=== PATIENT | male | born 1955 | race Caucasian/White ===

== ENCOUNTER 2016-07-21 09:17 | Inpatient (IN) | payer MEDICAID ==
[~2016-07-21] VITALS: Ht 182.9 cm; Wt 83.2 kg
[2016-07-21] MEDS ORDERED: ACETAMINOPHEN 325 MG TABLET PO ONE (09:30)
[2016-07-21] MEDS ORDERED: PIPERACILLIN/TAZO 3.375 GM in SODIUM CHLORIDE 0.9% 50 ML IVPB ONE (09:30)
[2016-07-21] MEDS ORDERED: SODIUM CHLORIDE FLUSH 10ML SYR IVF ONE (09:30)
[2016-07-21] MEDS ORDERED: VANCOMYCIN PER PHARMACY MC ONE (09:30)
[2016-07-21] MEDS ORDERED: SODIUM CHLORIDE 0.9% 1,000ML IVBOLUS ONE ×3 (09:30→11:00)
[2016-07-21] MEDS ORDERED: ACETAMINOPHEN 325 MG TABLET ONE (09:55)
[2016-07-21] MEDS ORDERED: OXYC-229 PO (10:04)
[2016-07-21 10:13] LABS: ABG COLLECTION SITE RIGHT RADIAL; COLLATERAL CIRCULATION TESTING NORMAL
[2016-07-21 10:25] LABS: BLOOD UREA NITROGEN 5 mg/dL (7-18)
[2016-07-21 10:28] LABS: ASPARTATE AMINO TRANSFERASE 3 U/L (15-37)
[2016-07-21 10:30] LABS: DIFF TOTAL CELLS COUNTED 100 CELL DIFF
[2016-07-21] MEDS ORDERED: VANCOMYCIN 2,000 MG in SODIUM CHLORIDE 0.9% 500 ML IV ONE (10:30)
[2016-07-21] MEDS ORDERED: FENTANYL PF 100 MCG/2ML IV ONE (10:30)
[2016-07-21 10:32] LABS: ANISOCYTOSIS 1+; VERIFY COUNTS? YES
[2016-07-21 10:33] LABS: HYPOCHROMIA 1+
[2016-07-21 10:34] LABS: MICROCYTOSIS 1+; POLYCHROMASIA 1+
[2016-07-21] MEDS ORDERED: FENTANYL PF 100 MCG/2ML ONE (10:34)
[2016-07-21] MEDS: GABAPENTIN 300 MG CAPSULE PO SCH ×3 (10:44→21:00)
[2016-07-21] MEDS ORDERED: ALBUTEROL/IPRATROPIUM 2.5MG/0.5MG, 3 ML ONE (11:05)
[2016-07-21] MEDS: ALBUTEROL/IPRATROPIUM 2.5MG/0.5MG, 3 ML NPPB SCH ×5 (11:10→22:50)
[2016-07-21] MEDS ORDERED: NOREPINEPHRINE 4 MG in SODIUM CHLORIDE 0.9% 246 ML IV PRN ×2 (11:30→13:00)
[2016-07-21] MEDS ORDERED: LORazepam 2 MG/ML, 1ML ONE (11:39)
[2016-07-21] MEDS ORDERED: DIGO125T PO (11:53)
[2016-07-21] MEDS ORDERED: ALPR0.254 PO (11:53)
[2016-07-21] MEDS ORDERED: ASPI-650 PO (11:53)
[2016-07-21] MEDS ORDERED: FERR325T10 PO (11:54)
[2016-07-21] MEDS ORDERED: DILT240C80 PO (11:54)
[2016-07-21] MEDS ORDERED: GABA300C10 PO (11:55)
[2016-07-21] MEDS ORDERED: IPRA3AMP INH (11:56)
[2016-07-21] MEDS ORDERED: POLY17PO5 PO (11:57)
[2016-07-21] MEDS ORDERED: POTA20TA89 PO (11:59)
[2016-07-21] MEDS ORDERED: SENN-66 PO (11:59)
[2016-07-21] MEDS ORDERED: SERT50TA5 PO (11:59)
[2016-07-21] MEDS ORDERED: BUDE10.2 INH (11:59)
[2016-07-21] MEDS ORDERED: CLOT15CR5 TP (12:01)
[2016-07-21] MEDS ORDERED: TAMS0.4C2 PO (12:01)
[2016-07-21] MEDS ORDERED: TIOT18CA INH (12:02)
[2016-07-21] MEDS ORDERED: LORazepam 2 MG/ML, 1ML IVPush ONE (12:30)
[2016-07-21] MEDS ORDERED: LORazepam 2 MG/ML, 1ML IVPush PRN (13:00)
[2016-07-21] MEDS ORDERED: VANCOMYCIN PER PHARMACY MC PRN (13:00)
[2016-07-21] MEDS ORDERED: ACETAMINOPHEN 325 MG TABLET PO PRN (13:00)
[2016-07-21] MEDS ORDERED: POLYETHYLENE GLYCOL 17 GM PACKET PO PRN (13:00)
[2016-07-21] MEDS ORDERED: ONDANSETRON 2MG/ML, 2ML IVPush PRN (13:00)
[2016-07-21] MEDS: PIPERACILLIN/TAZO/PMX 4.5GM 100 ML IV SCH ×2 (13:00→18:40)
[2016-07-21 14:22] VITALS: BP 98/55
[2016-07-21] MEDS ORDERED: PHARMACOKINETIC CONSULTATION MC ONE (14:30)
[2016-07-21] MEDS: methylPREDNISolone SOD SUCC 40 MG/ML IVPush SCH ×2 (14:52→21:52)
[2016-07-21] MEDS: ENOXAPARIN 40 MG/0.4 ML SQ SCH (14:52)
[2016-07-21] MEDS: NS + 20MEQ KCL 1,000 ML IV SCH (15:02)
[2016-07-21] MEDS ORDERED: ALBUTEROL/IPRATROPIUM 2.5MG/0.5MG, 3 ML NPPB PRN (16:00)
[2016-07-21] MEDS ORDERED: ALBUTEROL/IPRATROPIUM 2.5MG/0.5MG, 3 ML NPPB SCH (18:00)
[2016-07-21] MEDS: OXYcodone IR 5MG TABLET PO PRN (19:46)
[2016-07-21] MEDS ORDERED: PHARMACOKINETIC MONITORING MC PRN (21:00)
[2016-07-21] MEDS: VANCOMYCIN 2,000 MG in SODIUM CHLORIDE 0.9% 500 ML IV SCH (21:52)
[2016-07-22] MEDS: PIPERACILLIN/TAZO/PMX 4.5GM 100 ML IV SCH ×4 (01:20→20:53)
[2016-07-22] MEDS: NS + 20MEQ KCL 1,000 ML IV SCH (01:21)
[2016-07-22] MEDS: ALBUTEROL/IPRATROPIUM 2.5MG/0.5MG, 3 ML NPPB SCH ×6 (02:09→22:35)
[2016-07-22] MEDS: methylPREDNISolone SOD SUCC 40 MG/ML IVPush SCH ×4 (03:00→20:52)
[2016-07-22] MEDS: OXYcodone IR 5MG TABLET PO PRN ×4 (03:21→21:36)
[2016-07-22 03:59] LABS: ASPARTATE AMINO TRANSFERASE 8 U/L (15-37); BLOOD UREA NITROGEN 7 mg/dL (7-18)
[2016-07-22 04:36] VITALS: BP 121/65
[2016-07-22 05:34] LABS: DIFF TOTAL CELLS COUNTED 100 CELL DIFF
[2016-07-22 05:35] LABS: ANISOCYTOSIS 1+; HYPOCHROMIA 1+; VERIFY COUNTS? YES
[2016-07-22] MEDS: SENNA/DOCUSATE TABLET PO SCH (09:00)
[2016-07-22] MEDS: GABAPENTIN 300 MG CAPSULE PO SCH ×3 (09:02→20:52)
[2016-07-22] MEDS: VANCOMYCIN 2,000 MG in SODIUM CHLORIDE 0.9% 500 ML IV SCH (12:20)
[2016-07-22] MEDS: ENOXAPARIN 40 MG/0.4 ML SQ SCH (13:27)
[2016-07-22 14:40] VITALS: BP 133/80
[2016-07-22 20:00] VITALS: BP 145/93
[2016-07-23] MEDS: VANCOMYCIN 2,000 MG in SODIUM CHLORIDE 0.9% 500 ML IV SCH ×2 (00:33→12:31)
[2016-07-23 02:51] VITALS: BP 138/86
[2016-07-23] MEDS: ALBUTEROL/IPRATROPIUM 2.5MG/0.5MG, 3 ML NPPB SCH ×6 (02:55→22:50)
[2016-07-23] MEDS: methylPREDNISolone SOD SUCC 40 MG/ML IVPush SCH ×4 (03:26→22:26)
[2016-07-23] MEDS: PIPERACILLIN/TAZO/PMX 4.5GM 100 ML IV SCH ×4 (03:27→22:26)
[2016-07-23 04:07] LABS: ASPARTATE AMINO TRANSFERASE 7 U/L (15-37); BLOOD UREA NITROGEN 8 mg/dL (7-18)
[2016-07-23 07:36] VITALS: BP 151/91
[2016-07-23] MEDS: SENNA/DOCUSATE TABLET PO SCH (09:00)
[2016-07-23] MEDS: GABAPENTIN 300 MG CAPSULE PO SCH ×3 (09:32→22:26)
[2016-07-23] MEDS: OXYcodone IR 5MG TABLET PO PRN ×4 (09:33→22:26)
[2016-07-23] MEDS: ENOXAPARIN 40 MG/0.4 ML SQ SCH (12:32)
[2016-07-23 15:04] VITALS: BP 141/87
[2016-07-23 20:00] VITALS: BP 147/81
[2016-07-24] MEDS: VANCOMYCIN 2,000 MG in SODIUM CHLORIDE 0.9% 500 ML IV SCH (00:43)
[2016-07-24 02:00] VITALS: BP 152/91
[2016-07-24] MEDS: OXYcodone IR 5MG TABLET PO PRN ×3 (03:02→21:04)
[2016-07-24] MEDS: methylPREDNISolone SOD SUCC 40 MG/ML IVPush SCH ×4 (03:20→21:03)
[2016-07-24] MEDS: PIPERACILLIN/TAZO/PMX 4.5GM 100 ML IV SCH ×4 (03:20→21:04)
[2016-07-24] MEDS: ALBUTEROL/IPRATROPIUM 2.5MG/0.5MG, 3 ML NPPB SCH ×5 (07:25→23:36)
[2016-07-24 08:36] VITALS: BP 153/90
[2016-07-24] MEDS: SENNA/DOCUSATE TABLET PO SCH (08:38)
[2016-07-24] MEDS: FLUTICASONE/VILANTEROL 200-25MCG/INH INH SCH (08:38)
[2016-07-24] MEDS: GABAPENTIN 300 MG CAPSULE PO SCH ×3 (08:39→21:00)
[2016-07-24] MEDS: ENOXAPARIN 40 MG/0.4 ML SQ SCH (12:20)
[2016-07-24] MEDS ORDERED: VANCOMYCIN 2,000 MG in SODIUM CHLORIDE 0.9% 500 ML IV SCH (12:30)
[2016-07-24 20:24] VITALS: BP 151/99
[2016-07-25 02:04] VITALS: BP_SYST 138; BP_SYST 160; BP_DIAS 89; BP_DIAS 96
[2016-07-25] MEDS: OXYcodone IR 5MG TABLET PO PRN ×5 (02:13→22:37)
[2016-07-25] MEDS: methylPREDNISolone SOD SUCC 40 MG/ML IVPush SCH ×2 (03:08→08:47)
[2016-07-25] MEDS: PIPERACILLIN/TAZO/PMX 4.5GM 100 ML IV SCH ×2 (03:08→08:48)
[2016-07-25 03:26] LABS: BLOOD UREA NITROGEN 11 mg/dL (7-18)
[2016-07-25] MEDS: VANCOMYCIN 2,000 MG in SODIUM CHLORIDE 0.9% 500 ML IV SCH (05:48)
[2016-07-25] MEDS: ALBUTEROL/IPRATROPIUM 2.5MG/0.5MG, 3 ML NPPB SCH ×5 (06:00→22:00)
[2016-07-25] MEDS ORDERED: SODIUM BICARBONATE 4.2%, 5ML NPPB SCH (07:00)
[2016-07-25] MEDS: FLUTICASONE/VILANTEROL 200-25MCG/INH INH SCH (08:47)
[2016-07-25] MEDS: GABAPENTIN 300 MG CAPSULE PO SCH ×3 (08:47→22:37)
[2016-07-25] MEDS: SENNA/DOCUSATE TABLET PO SCH (08:47)
[2016-07-25 09:47] VITALS: BP 148/94
[2016-07-25] MEDS: SODIUM BICARBONATE 4.2%, 5ML NPPB SCH ×4 (10:00→22:00)
[2016-07-25] MEDS: ENOXAPARIN 40 MG/0.4 ML SQ SCH (11:47)
[2016-07-25 13:58] VITALS: BP 157/94
[2016-07-25] MEDS: GUAIFENESIN 200 MG TABLET PO SCH ×2 (17:18→22:37)
[2016-07-25] MEDS: PIPERACILLIN/TAZO 4.5 GM in SODIUM CHLORIDE 0.9% 100 ML IVPB SCH ×2 (17:19→22:36)
[2016-07-25 19:58] VITALS: BP 147/98
[2016-07-26] MEDS: VANCOMYCIN 2,000 MG in SODIUM CHLORIDE 0.9% 500 ML IV SCH ×2 (00:15→18:18)
[2016-07-26 01:12] VITALS: BP 153/94
[2016-07-26] MEDS: PIPERACILLIN/TAZO 4.5 GM in SODIUM CHLORIDE 0.9% 100 ML IVPB SCH ×4 (04:54→22:53)
[2016-07-26] MEDS: GUAIFENESIN 200 MG TABLET PO SCH ×4 (05:04→20:34)
[2016-07-26] MEDS: OXYcodone IR 5MG TABLET PO PRN ×2 (05:04→20:34)
[2016-07-26] MEDS: SODIUM CHLORIDE NASAL SPRAY 45ML BOTTLE NAS PRN ×2 (05:05→20:49)
[2016-07-26 06:08] LABS: BLOOD UREA NITROGEN 8 mg/dL (7-18)
[2016-07-26 06:15] LABS: DIFF TOTAL CELLS COUNTED 100 CELL DIFF
[2016-07-26 06:17] LABS: VERIFY COUNTS? YES
[2016-07-26 06:18] LABS: ANISOCYTOSIS 1+
[2016-07-26 06:39] VITALS: BP 136/87
[2016-07-26] MEDS: ALBUTEROL/IPRATROPIUM 2.5MG/0.5MG, 3 ML NPPB SCH ×3 (07:10→14:35)
[2016-07-26] MEDS: SODIUM BICARBONATE 4.2%, 5ML NPPB SCH ×2 (07:10→10:50)
[2016-07-26] MEDS ORDERED: POTASSIUM CHLORIDE 20 MEQ TAB.ER.PRT PO ONE (07:30)
[2016-07-26] MEDS: GABAPENTIN 300 MG CAPSULE PO SCH ×3 (08:40→20:36)
[2016-07-26] MEDS: IRON SUCROSE COMPLEX 100MG/5ML IV SCH (08:41)
[2016-07-26] MEDS: SENNA/DOCUSATE TABLET PO SCH (08:41)
[2016-07-26] MEDS: FLUTICASONE/VILANTEROL 200-25MCG/INH INH SCH (08:41)
[2016-07-26 10:59] LABS: ABG COLLECTION SITE LEFT RADIAL; COLLATERAL CIRCULATION TESTING NORMAL
[2016-07-26] MEDS ORDERED: DILTIAZEM 5 MG/ML, 5ML IVPush ONE (11:30)
[2016-07-26] MEDS: DILTIAZEM 30 MG TABLET PO SCH ×2 (12:08→18:18)
[2016-07-26 13:22] VITALS: BP 135/86
[2016-07-26] MEDS: LEVOFLOXACIN/PMX 500MG/100ML 100 ML IV SCH (14:42)
[2016-07-26] MEDS: ENOXAPARIN 40 MG/0.4 ML SQ SCH (16:27)
[2016-07-26] MEDS ORDERED: MORPHINE SULFATE 4 MG/ML, 1ML ONE (16:49)
[2016-07-26] MEDS: morphine SULFATE 10 MG/ML, 1ML IVPush PRN (17:04)
[2016-07-26 19:04] VITALS: BP 150/92
[2016-07-26] MEDS ORDERED: ALBUTEROL/IPRATROPIUM 2.5MG/0.5MG, 3 ML NPPB SCH (21:00)
[2016-07-27] MEDS: OXYcodone IR 5MG TABLET PO PRN ×5 (00:40→21:00)
[2016-07-27] MEDS: SODIUM CHLORIDE NASAL SPRAY 45ML BOTTLE NAS PRN ×2 (00:40→06:10)
[2016-07-27 00:58] VITALS: BP 136/92
[2016-07-27] MEDS: GUAIFENESIN 200 MG TABLET PO SCH ×4 (05:44→21:00)
[2016-07-27] MEDS: PIPERACILLIN/TAZO 4.5 GM in SODIUM CHLORIDE 0.9% 100 ML IVPB SCH (05:44)
[2016-07-27 06:31] LABS: BLOOD UREA NITROGEN 10 mg/dL (7-18)
[2016-07-27 06:43] LABS: DIFF TOTAL CELLS COUNTED 100 CELL DIFF
[2016-07-27 06:45] LABS: ANISOCYTOSIS 1+; VERIFY COUNTS? YES
[2016-07-27 08:00] VITALS: BP 132/90
[2016-07-27] MEDS: DILTIAZEM 30 MG TABLET PO SCH ×2 (08:16→12:38)
[2016-07-27] MEDS: FLUTICASONE/VILANTEROL 200-25MCG/INH INH SCH (08:16)
[2016-07-27] MEDS: IRON SUCROSE COMPLEX 100MG/5ML IV SCH (08:16)
[2016-07-27] MEDS: GABAPENTIN 300 MG CAPSULE PO SCH ×3 (08:16→21:00)
[2016-07-27] MEDS: SENNA/DOCUSATE TABLET PO SCH (08:17)
[2016-07-27] MEDS: ALBUTEROL/IPRATROPIUM 2.5MG/0.5MG, 3 ML NPPB SCH ×3 (09:00→21:00)
[2016-07-27] MEDS: DILTIAZEM 60 MG TABLET PO SCH ×2 (10:00→21:00)
[2016-07-27] MEDS ORDERED: SODIUM BICARBONATE 4.2%, 5ML ONE (10:49)
[2016-07-27] MEDS ORDERED: LIDOCAINE 1%, 20ML ONE (10:49)
[2016-07-27] MEDS: LEVOFLOXACIN/PMX 500MG/100ML 100 ML IV SCH (12:54)
[2016-07-27 13:54] VITALS: BP 142/93
[2016-07-27] MEDS: ENOXAPARIN 40 MG/0.4 ML SQ SCH (16:59)
[2016-07-27 19:15] VITALS: BP 138/86
[2016-07-28 01:06] VITALS: BP 132/83
[2016-07-28] MEDS: GUAIFENESIN 200 MG TABLET PO SCH ×4 (05:23→20:22)
[2016-07-28 06:07] LABS: DIFF TOTAL CELLS COUNTED 100 CELL DIFF
[2016-07-28 06:12] LABS: ANISOCYTOSIS 1+; VERIFY COUNTS? YES
[2016-07-28 06:14] LABS: POLYCHROMASIA 1+
[2016-07-28] MEDS: ALBUTEROL/IPRATROPIUM 2.5MG/0.5MG, 3 ML NPPB SCH ×3 (06:43→21:23)
[2016-07-28 07:16] VITALS: BP 134/86
[2016-07-28] MEDS: IRON SUCROSE COMPLEX 100MG/5ML IV SCH (08:34)
[2016-07-28] MEDS: OXYcodone IR 5MG TABLET PO PRN ×3 (08:34→20:31)
[2016-07-28] MEDS: DILTIAZEM 30 MG TABLET PO SCH ×2 (08:35→20:23)
[2016-07-28] MEDS: SULFAMETH./TRIMETHOPRIM DS 800MG/160MG TABLET PO SCH ×2 (08:35→20:22)
[2016-07-28] MEDS: SENNA/DOCUSATE TABLET PO SCH (08:36)
[2016-07-28] MEDS: FLUTICASONE/VILANTEROL 200-25MCG/INH INH SCH (08:36)
[2016-07-28] MEDS: GABAPENTIN 300 MG CAPSULE PO SCH ×3 (08:36→20:22)
[2016-07-28] MEDS ORDERED: DILTIAZEM 30 MG TABLET PO SCH (09:30)
[2016-07-28] MEDS: LEVOFLOXACIN/PMX 500MG/100ML 100 ML IV SCH (11:16)
[2016-07-28 12:28] VITALS: BP 134/83
[2016-07-28] MEDS: ENOXAPARIN 40 MG/0.4 ML SQ SCH (17:21)
[2016-07-28] MEDS: DILTIAZEM 5 MG/ML, 5ML IVPush PRN ×2 (17:23→23:23)
[2016-07-28 19:46] VITALS: BP 117/78
[2016-07-28] MEDS: DILTIAZEM 60 MG CAP.ER.12H PO SCH (20:23)
[2016-07-29 01:36] VITALS: BP 135/101
[2016-07-29] MEDS: OXYcodone IR 5MG TABLET PO PRN ×4 (02:30→20:28)
[2016-07-29] MEDS: GUAIFENESIN 200 MG TABLET PO SCH ×4 (05:17→20:20)
[2016-07-29 05:42] LABS: BLOOD UREA NITROGEN 10 mg/dL (7-18)
[2016-07-29 06:01] LABS: DIFF TOTAL CELLS COUNTED 100 CELL DIFF
[2016-07-29 06:04] LABS: VERIFY COUNTS? YES
[2016-07-29 06:05] LABS: ANISOCYTOSIS 1+; MICROCYTOSIS 1+
[2016-07-29 06:06] LABS: HYPOCHROMIA 1+; POLYCHROMASIA 1+
[2016-07-29 06:07] LABS: POIKILOCYTOSIS 1+
[2016-07-29] MEDS: ALBUTEROL/IPRATROPIUM 2.5MG/0.5MG, 3 ML NPPB SCH ×3 (07:18→21:40)
[2016-07-29 08:37] VITALS: BP 126/84
[2016-07-29] MEDS: SENNA/DOCUSATE TABLET PO SCH (09:31)
[2016-07-29] MEDS: FLUTICASONE/VILANTEROL 200-25MCG/INH INH SCH (09:31)
[2016-07-29] MEDS: SULFAMETH./TRIMETHOPRIM DS 800MG/160MG TABLET PO SCH (09:31)
[2016-07-29] MEDS: GABAPENTIN 300 MG CAPSULE PO SCH ×3 (09:32→20:20)
[2016-07-29] MEDS: DILTIAZEM 60 MG CAP.ER.12H PO SCH ×2 (09:45→20:20)
[2016-07-29] MEDS: DILTIAZEM 30 MG TABLET PO SCH (09:45)
[2016-07-29 14:03] VITALS: BP 132/87
[2016-07-29] MEDS: LEVOFLOXACIN/PMX 500MG/100ML 100 ML IV SCH (14:34)
[2016-07-29] MEDS: SULFAMETH./TRIMETHOPRIM 5 ML in DEXTROSE 5% 250 ML IV SCH ×3 (14:34→23:04)
[2016-07-29] MEDS ORDERED: OMNIPAQUE 350 MG/ML, 100ML BOTTLE ONE (15:43)
[2016-07-29 15:45] LABS: DIFF TOTAL CELLS COUNTED 100 CELL DIFF
[2016-07-29 15:47] LABS: VERIFY COUNTS? YES
[2016-07-29 15:48] LABS: ANISOCYTOSIS 1+; HYPOCHROMIA 1+; OVALOCYTES 1+; POIKILOCYTOSIS 1+; POLYCHROMASIA 1+
[2016-07-29] MEDS: ENOXAPARIN 40 MG/0.4 ML SQ SCH (18:37)
[2016-07-29 20:18] VITALS: BP 111/71
[2016-07-30 02:42] VITALS: BP 127/76
[2016-07-30] MEDS: GUAIFENESIN 200 MG TABLET PO SCH ×4 (05:20→20:29)
[2016-07-30] MEDS: SULFAMETH./TRIMETHOPRIM 5 ML in DEXTROSE 5% 250 ML IV SCH ×2 (05:20→12:28)
[2016-07-30 06:44] VITALS: BP 145/82
[2016-07-30] MEDS: DILTIAZEM 60 MG CAP.ER.12H PO SCH ×2 (09:27→20:29)
[2016-07-30] MEDS: OXYcodone IR 5MG TABLET PO PRN ×3 (09:27→20:29)
[2016-07-30] MEDS: SENNA/DOCUSATE TABLET PO SCH (09:28)
[2016-07-30] MEDS: GABAPENTIN 300 MG CAPSULE PO SCH ×3 (09:28→20:29)
[2016-07-30] MEDS: FLUTICASONE/VILANTEROL 200-25MCG/INH INH SCH (09:31)
[2016-07-30] MEDS: ALBUTEROL/IPRATROPIUM 2.5MG/0.5MG, 3 ML NPPB SCH ×3 (10:35→21:15)
[2016-07-30 13:16] VITALS: BP 139/86
[2016-07-30] MEDS: SULFAMETH./TRIMETHOPRIM DS 800MG/160MG TABLET PO SCH (14:41)
[2016-07-30] MEDS: MEROPENEM 500 MG in SODIUM CHLORIDE 0.9% 100 ML IV SCH ×2 (14:41→20:29)
[2016-07-30] MEDS: ENOXAPARIN 40 MG/0.4 ML SQ SCH (18:00)
[2016-07-30 20:32] VITALS: BP 129/73
[2016-07-31] MEDS: OXYcodone IR 5MG TABLET PO PRN ×5 (01:19→20:19)
[2016-07-31 01:20] VITALS: BP 123/54
[2016-07-31] MEDS: SULFAMETH./TRIMETHOPRIM DS 800MG/160MG TABLET PO SCH ×2 (01:32→15:10)
[2016-07-31] MEDS: MEROPENEM 500 MG in SODIUM CHLORIDE 0.9% 100 ML IV SCH ×3 (05:52→23:13)
[2016-07-31] MEDS: GUAIFENESIN 200 MG TABLET PO SCH ×4 (05:52→20:18)
[2016-07-31] MEDS: ALBUTEROL/IPRATROPIUM 2.5MG/0.5MG, 3 ML NPPB SCH ×3 (07:14→21:00)
[2016-07-31 07:42] LABS: DIFF TOTAL CELLS COUNTED 100 CELL DIFF
[2016-07-31 07:44] LABS: ANISOCYTOSIS 2+; VERIFY COUNTS? YES
[2016-07-31 07:45] LABS: HYPOCHROMIA 1+; POLYCHROMASIA 1+
[2016-07-31 07:46] LABS: OVALOCYTES 1+; POIKILOCYTOSIS 1+
[2016-07-31 08:28] VITALS: BP 126/62
[2016-07-31] MEDS: SENNA/DOCUSATE TABLET PO SCH (09:00)
[2016-07-31] MEDS: GABAPENTIN 300 MG CAPSULE PO SCH ×3 (10:07→20:19)
[2016-07-31] MEDS: DILTIAZEM 60 MG CAP.ER.12H PO SCH ×2 (10:07→20:19)
[2016-07-31] MEDS: FLUTICASONE/VILANTEROL 200-25MCG/INH INH SCH (10:07)
[2016-07-31 13:41] VITALS: BP 122/70
[2016-07-31] MEDS: ENOXAPARIN 40 MG/0.4 ML SQ SCH (17:46)
[2016-07-31 19:32] VITALS: BP 129/85
[2016-08-01] MEDS: SULFAMETH./TRIMETHOPRIM DS 800MG/160MG TABLET PO SCH ×2 (02:25→13:04)
[2016-08-01] MEDS: OXYcodone IR 5MG TABLET PO PRN ×5 (02:30→21:35)
[2016-08-01 02:41] VITALS: BP 138/77
[2016-08-01] MEDS: GUAIFENESIN 200 MG TABLET PO SCH ×4 (05:23→21:35)
[2016-08-01 07:47] VITALS: BP 122/73
[2016-08-01] MEDS: GABAPENTIN 300 MG CAPSULE PO SCH ×3 (08:01→21:35)
[2016-08-01] MEDS: DILTIAZEM 60 MG CAP.ER.12H PO SCH (08:01)
[2016-08-01] MEDS: FLUTICASONE/VILANTEROL 200-25MCG/INH INH SCH (08:01)
[2016-08-01] MEDS: MEROPENEM 500 MG in SODIUM CHLORIDE 0.9% 100 ML IV SCH ×3 (08:01→23:19)
[2016-08-01] MEDS: SENNA/DOCUSATE TABLET PO SCH (08:02)
[2016-08-01] MEDS: ALBUTEROL/IPRATROPIUM 2.5MG/0.5MG, 3 ML NPPB SCH ×3 (09:00→18:59)
[2016-08-01] MEDS: methylPREDNISolone SOD SUCC 125 MG/2 ML IVPush SCH ×2 (13:02→21:35)
[2016-08-01 13:10] LABS: ABG COLLECTION SITE RIGHT RADIAL; COLLATERAL CIRCULATION TESTING NORMAL
[2016-08-01 13:54] VITALS: BP 131/66
[2016-08-01] MEDS: ENOXAPARIN 40 MG/0.4 ML SQ SCH (15:20)
[2016-08-01 18:48] VITALS: BP 119/78
[2016-08-01] MEDS: DILTIAZEM 90 MG CAP.ER.12H PO SCH (21:35)
[2016-08-02 02:01] VITALS: BP 126/73
[2016-08-02] MEDS: OXYcodone IR 5MG TABLET PO PRN ×5 (02:18→20:02)
[2016-08-02] MEDS: methylPREDNISolone SOD SUCC 125 MG/2 ML IVPush SCH ×4 (02:18→20:02)
[2016-08-02] MEDS: GUAIFENESIN 200 MG TABLET PO SCH ×4 (05:12→20:02)
[2016-08-02] MEDS: SULFAMETH./TRIMETHOPRIM DS 800MG/160MG TABLET PO SCH ×2 (05:12→18:11)
[2016-08-02 05:47] LABS: BLOOD UREA NITROGEN 10 mg/dL (7-18)
[2016-08-02 05:50] LABS: ASPARTATE AMINO TRANSFERASE 3 U/L (15-37)
[2016-08-02 06:01] LABS: DIFF TOTAL CELLS COUNTED 100 CELL DIFF
[2016-08-02 06:02] LABS: ANISOCYTOSIS 2+; VERIFY COUNTS? YES
[2016-08-02 06:03] LABS: OVALOCYTES 1+; POIKILOCYTOSIS 1+
[2016-08-02 06:05] LABS: POLYCHROMASIA 1+
[2016-08-02] MEDS: ALBUTEROL/IPRATROPIUM 2.5MG/0.5MG, 3 ML NPPB SCH ×3 (06:50→18:57)
[2016-08-02] MEDS: MEROPENEM 500 MG in SODIUM CHLORIDE 0.9% 100 ML IV SCH ×3 (07:49→22:48)
[2016-08-02 07:50] VITALS: BP 127/76
[2016-08-02] MEDS: FLUTICASONE/VILANTEROL 200-25MCG/INH INH SCH (08:59)
[2016-08-02] MEDS: SENNA/DOCUSATE TABLET PO SCH (08:59)
[2016-08-02] MEDS: GABAPENTIN 300 MG CAPSULE PO SCH ×3 (08:59→20:02)
[2016-08-02] MEDS: DILTIAZEM 90 MG CAP.ER.12H PO SCH ×2 (08:59→20:02)
[2016-08-02] MEDS: ASPIRIN 325 MG TABLET PO SCH (08:59)
[2016-08-02 13:47] VITALS: BP 134/75
[2016-08-02] MEDS: ENOXAPARIN 40 MG/0.4 ML SQ SCH (15:49)
[2016-08-02 18:51] VITALS: BP 126/75
[2016-08-02] MEDS: TEMAZEPAM 15 MG CAPSULE PO PRN (22:47)
[2016-08-03] MEDS: OXYcodone IR 5MG TABLET PO PRN ×5 (00:29→22:50)
[2016-08-03] MEDS: TEMAZEPAM 15 MG CAPSULE PO PRN ×2 (00:29→22:49)
[2016-08-03 01:08] VITALS: BP 128/67
[2016-08-03] MEDS: methylPREDNISolone SOD SUCC 125 MG/2 ML IVPush SCH ×4 (03:09→22:51)
[2016-08-03] MEDS: SULFAMETH./TRIMETHOPRIM DS 800MG/160MG TABLET PO SCH ×2 (05:01→18:32)
[2016-08-03] MEDS: ASPIRIN 325 MG TABLET PO SCH (05:01)
[2016-08-03] MEDS: GUAIFENESIN 200 MG TABLET PO SCH ×4 (05:01→20:52)
[2016-08-03 06:07] LABS: BLOOD UREA NITROGEN 13 mg/dL (7-18)
[2016-08-03] MEDS: MEROPENEM 500 MG in SODIUM CHLORIDE 0.9% 100 ML IV SCH ×3 (06:22→23:26)
[2016-08-03 06:23] LABS: DIFF TOTAL CELLS COUNTED 100 CELL DIFF
[2016-08-03 06:24] LABS: ANISOCYTOSIS 1+; OVALOCYTES 1+
[2016-08-03 06:25] LABS: MICROCYTOSIS 1+; VERIFY COUNTS? YES
[2016-08-03] MEDS: ALBUTEROL/IPRATROPIUM 2.5MG/0.5MG, 3 ML NPPB SCH ×3 (07:00→21:40)
[2016-08-03 07:57] VITALS: BP 135/81
[2016-08-03] MEDS: DILTIAZEM 90 MG CAP.ER.12H PO SCH (09:08)
[2016-08-03] MEDS: GABAPENTIN 300 MG CAPSULE PO SCH ×3 (09:08→20:52)
[2016-08-03] MEDS: FLUTICASONE/VILANTEROL 200-25MCG/INH INH SCH ×2 (09:09→14:01)
[2016-08-03] MEDS: SENNA/DOCUSATE TABLET PO SCH (09:09)
[2016-08-03] MEDS ORDERED: FUROSEMIDE 20 MG/2 ML IV ONE ×2 (12:00→20:00)
[2016-08-03 12:02] VITALS: BP 140/84
[2016-08-03] MEDS: DILTIAZEM 5 MG/ML, 5ML IVPush PRN ×2 (14:01→23:28)
[2016-08-03] MEDS: ENOXAPARIN 40 MG/0.4 ML SQ SCH (16:08)
[2016-08-03 16:23] VITALS: BP 141/85
[2016-08-03] MEDS ORDERED: DILTIAZEM 5 MG/ML, 5ML IVPush ONE (16:30)
[2016-08-03 19:09] VITALS: BP 135/88
[2016-08-03 23:28] VITALS: BP 135/90
[2016-08-04 00:54] VITALS: BP 126/84
[2016-08-04] MEDS: methylPREDNISolone SOD SUCC 125 MG/2 ML IVPush SCH ×4 (05:10→22:11)
[2016-08-04] MEDS: ASPIRIN 325 MG TABLET PO SCH (05:23)
[2016-08-04] MEDS: GUAIFENESIN 200 MG TABLET PO SCH ×4 (05:23→22:11)
[2016-08-04] MEDS: SULFAMETH./TRIMETHOPRIM DS 800MG/160MG TABLET PO SCH ×2 (05:23→17:52)
[2016-08-04] MEDS: OXYcodone IR 5MG TABLET PO PRN ×4 (05:23→22:11)
[2016-08-04 06:29] LABS: DIFF TOTAL CELLS COUNTED 100 CELL DIFF
[2016-08-04] MEDS: DILTIAZEM 5 MG/ML, 5ML IVPush PRN ×3 (06:29→22:12)
[2016-08-04 06:30] VITALS: BP 138/98
[2016-08-04 06:31] LABS: ANISOCYTOSIS 1+; OVALOCYTES 1+; VERIFY COUNTS? YES
[2016-08-04 06:56] VITALS: BP 137/90
[2016-08-04] MEDS: ALBUTEROL/IPRATROPIUM 2.5MG/0.5MG, 3 ML NPPB SCH ×3 (07:05→20:44)
[2016-08-04] MEDS: MEROPENEM 500 MG in SODIUM CHLORIDE 0.9% 100 ML IV SCH ×2 (08:00→17:53)
[2016-08-04] MEDS: DILTIAZEM 300 MG CAP.ER.24H PO SCH (08:30)
[2016-08-04] MEDS: FLUTICASONE/VILANTEROL 200-25MCG/INH INH SCH (08:30)
[2016-08-04] MEDS: GABAPENTIN 300 MG CAPSULE PO SCH ×3 (08:30→22:11)
[2016-08-04] MEDS: SENNA/DOCUSATE TABLET PO SCH (08:31)
[2016-08-04 13:26] VITALS: BP 142/84
[2016-08-04] MEDS: ENOXAPARIN 40 MG/0.4 ML SQ SCH (15:58)
[2016-08-04] MEDS ORDERED: OMNIPAQUE 350 MG/ML, 100ML BOTTLE ONE (17:28)
[2016-08-04 19:24] VITALS: BP 160/100
[2016-08-05] MEDS: MEROPENEM 500 MG in SODIUM CHLORIDE 0.9% 100 ML IV SCH ×3 (00:07→16:15)
[2016-08-05] MEDS: TEMAZEPAM 15 MG CAPSULE PO PRN (00:07)
[2016-08-05 01:48] VITALS: BP 134/86
[2016-08-05] MEDS: methylPREDNISolone SOD SUCC 125 MG/2 ML IVPush SCH ×3 (04:18→17:16)
[2016-08-05] MEDS: OXYcodone IR 5MG TABLET PO PRN ×4 (04:18→21:17)
[2016-08-05 05:04] LABS: DIFF TOTAL CELLS COUNTED 100 CELL DIFF
[2016-08-05 05:06] LABS: ANISOCYTOSIS 1+; OVALOCYTES 1+; VERIFY COUNTS? YES
[2016-08-05] MEDS: SULFAMETH./TRIMETHOPRIM DS 800MG/160MG TABLET PO SCH ×2 (06:01→17:16)
[2016-08-05] MEDS: GUAIFENESIN 200 MG TABLET PO SCH ×4 (06:01→20:42)
[2016-08-05] MEDS: ASPIRIN 325 MG TABLET PO SCH (06:01)
[2016-08-05] MEDS: FLUTICASONE/VILANTEROL 200-25MCG/INH INH SCH (08:38)
[2016-08-05] MEDS: GABAPENTIN 300 MG CAPSULE PO SCH ×3 (08:39→20:42)
[2016-08-05] MEDS: DILTIAZEM 300 MG CAP.ER.24H PO SCH (08:39)
[2016-08-05] MEDS: SENNA/DOCUSATE TABLET PO SCH (08:39)
[2016-08-05 08:41] VITALS: BP 162/90
[2016-08-05] MEDS ORDERED: DIGOXIN 0.25 MG/ML, 2ML IVPush ONE ×3 (09:30→21:30)
[2016-08-05] MEDS: ALBUTEROL/IPRATROPIUM 2.5MG/0.5MG, 3 ML NPPB SCH ×3 (09:55→20:00)
[2016-08-05] MEDS ORDERED: methylPREDNISolone SOD SUCC 125 MG/2 ML IVPush SCH (12:00)
[2016-08-05 13:26] LABS: BLOOD UREA NITROGEN 18 mg/dL (7-18)
[2016-08-05] MEDS: ENOXAPARIN 40 MG/0.4 ML SQ SCH (15:07)
[2016-08-05 15:49] VITALS: BP 160/69
[2016-08-05 21:05] VITALS: BP 147/89
[2016-08-06] MEDS: methylPREDNISolone SOD SUCC 125 MG/2 ML IVPush SCH ×4 (00:01→17:58)
[2016-08-06] MEDS: MEROPENEM 500 MG in SODIUM CHLORIDE 0.9% 100 ML IV SCH ×3 (00:02→16:33)
[2016-08-06] MEDS: TEMAZEPAM 15 MG CAPSULE PO PRN ×2 (00:20→23:00)
[2016-08-06 03:36] VITALS: BP 126/74
[2016-08-06 05:24] LABS: BLOOD UREA NITROGEN 17 mg/dL (7-18)
[2016-08-06] MEDS: GUAIFENESIN 200 MG TABLET PO SCH ×4 (05:38→21:00)
[2016-08-06] MEDS: SULFAMETH./TRIMETHOPRIM DS 800MG/160MG TABLET PO SCH ×2 (05:38→18:00)
[2016-08-06] MEDS: ASPIRIN 325 MG TABLET PO SCH (05:38)
[2016-08-06 05:57] LABS: DIFF TOTAL CELLS COUNTED 100 CELL DIFF
[2016-08-06 06:00] LABS: VERIFY COUNTS? YES
[2016-08-06 06:02] LABS: ANISOCYTOSIS 1+
[2016-08-06 06:03] LABS: OVALOCYTES 1+
[2016-08-06] MEDS: ALBUTEROL/IPRATROPIUM 2.5MG/0.5MG, 3 ML NPPB SCH ×5 (07:20→19:15)
[2016-08-06 07:25] VITALS: BP 161/99
[2016-08-06] MEDS: DILTIAZEM 5 MG/ML, 5ML IVPush PRN (07:44)
[2016-08-06] MEDS: GABAPENTIN 300 MG CAPSULE PO SCH ×3 (07:49→21:00)
[2016-08-06] MEDS: OXYcodone IR 5MG TABLET PO PRN ×2 (07:50→13:55)
[2016-08-06] MEDS: FLUTICASONE/VILANTEROL 200-25MCG/INH INH SCH (07:50)
[2016-08-06] MEDS: SENNA/DOCUSATE TABLET PO SCH (09:00)
[2016-08-06] MEDS: DILTIAZEM 300 MG CAP.ER.24H PO SCH (09:08)
[2016-08-06 12:49] VITALS: BP 136/75
[2016-08-06] MEDS: FUROSEMIDE 20 MG/2 ML IV SCH (13:54)
[2016-08-06] MEDS: METOPROLOL TARTRATE 25 MG TABLET PO SCH ×2 (16:32→23:00)
[2016-08-06] MEDS: ENOXAPARIN 40 MG/0.4 ML SQ SCH (16:52)
[2016-08-06] MEDS ORDERED: METOPROLOL TARTRATE 25 MG TABLET PO SCH (18:00)
[2016-08-06 18:28] VITALS: BP 146/77
[2016-08-06] MEDS: APIXABAN 5 MG TABLET PO SCH (21:00)
[2016-08-07 02:35] VITALS: BP 127/78
[2016-08-07] MEDS: OXYcodone IR 5MG TABLET PO PRN ×3 (02:45→17:39)
[2016-08-07] MEDS: GUAIFENESIN 200 MG TABLET PO SCH ×4 (04:54→21:34)
[2016-08-07] MEDS: METOPROLOL TARTRATE 25 MG TABLET PO SCH ×4 (04:54→21:34)
[2016-08-07] MEDS: methylPREDNISolone SOD SUCC 125 MG/2 ML IVPush SCH ×4 (04:54→21:34)
[2016-08-07 06:43] VITALS: BP 130/74
[2016-08-07] MEDS: ALBUTEROL/IPRATROPIUM 2.5MG/0.5MG, 3 ML NPPB SCH ×4 (07:37→20:24)
[2016-08-07] MEDS: SENNA/DOCUSATE TABLET PO SCH (09:00)
[2016-08-07] MEDS: FUROSEMIDE 20 MG/2 ML IV SCH (09:37)
[2016-08-07] MEDS: GABAPENTIN 300 MG CAPSULE PO SCH ×3 (09:38→21:34)
[2016-08-07] MEDS: APIXABAN 5 MG TABLET PO SCH ×2 (09:38→21:34)
[2016-08-07] MEDS: DIGOXIN 0.25 MG TABLET PO SCH (09:39)
[2016-08-07] MEDS: DILTIAZEM 300 MG CAP.ER.24H PO SCH (09:39)
[2016-08-07] MEDS: FLUTICASONE/VILANTEROL 200-25MCG/INH INH SCH (13:19)
[2016-08-07 13:34] VITALS: BP 133/74
[2016-08-07] MEDS ORDERED: FUROSEMIDE 20 MG/2 ML IV ONE (16:00)
[2016-08-07 19:18] VITALS: BP 125/76
[2016-08-08] MEDS: TEMAZEPAM 15 MG CAPSULE PO PRN (01:22)
[2016-08-08] MEDS: OXYcodone IR 5MG TABLET PO PRN ×5 (01:22→20:55)
[2016-08-08 01:29] VITALS: BP 113/76
[2016-08-08 05:21] LABS: BLOOD UREA NITROGEN 21 mg/dL (7-18)
[2016-08-08] MEDS: GUAIFENESIN 200 MG TABLET PO SCH ×4 (05:32→20:56)
[2016-08-08] MEDS: METOPROLOL TARTRATE 25 MG TABLET PO SCH ×4 (05:32→20:56)
[2016-08-08] MEDS: methylPREDNISolone SOD SUCC 125 MG/2 ML IVPush SCH (05:32)
[2016-08-08 06:09] LABS: DIFF TOTAL CELLS COUNTED 100 CELL DIFF
[2016-08-08 06:12] LABS: ANISOCYTOSIS 1+; VERIFY COUNTS? YES
[2016-08-08] MEDS: ALBUTEROL/IPRATROPIUM 2.5MG/0.5MG, 3 ML NPPB SCH ×4 (07:51→20:33)
[2016-08-08] MEDS: DIGOXIN 0.25 MG TABLET PO SCH (08:35)
[2016-08-08] MEDS: APIXABAN 5 MG TABLET PO SCH ×2 (08:35→20:55)
[2016-08-08] MEDS: GABAPENTIN 300 MG CAPSULE PO SCH ×3 (08:35→20:56)
[2016-08-08] MEDS: DILTIAZEM 300 MG CAP.ER.24H PO SCH (08:36)
[2016-08-08] MEDS: FLUTICASONE/VILANTEROL 200-25MCG/INH INH SCH (08:36)
[2016-08-08] MEDS: SENNA/DOCUSATE TABLET PO SCH (08:37)
[2016-08-08 08:49] VITALS: BP 115/67
[2016-08-08] MEDS ORDERED: AcetaZOLAMIDE INJ 500 MG IVPush SCH (09:00)
[2016-08-08] MEDS ORDERED: AcetaZOLAMIDE INJ 500 MG IVPush ONE (11:30)
[2016-08-08] MEDS ORDERED: POLYETHYLENE GLYCOL 17 GM PACKET PO PRN (13:00)
[2016-08-08] MEDS ORDERED: ONDANSETRON 2MG/ML, 2ML IVPush PRN (14:30)
[2016-08-08] MEDS ORDERED: ALBUTEROL/IPRATROPIUM 2.5MG/0.5MG, 3 ML NPPB PRN (14:30)
[2016-08-08] MEDS ORDERED: methylPREDNISolone SOD SUCC 40 MG/ML IVPush SCH (17:00)
[2016-08-08 17:01] VITALS: BP 130/76
[2016-08-08 17:05] LABS: ABG COLLECTION SITE RIGHT BRACHIAL
[2016-08-08 19:47] LABS: ABG COLLECTION SITE RIGHT RADIAL; COLLATERAL CIRCULATION TESTING NORMAL
[2016-08-08] MEDS: methylPREDNISolone SOD SUCC 40 MG/ML IVPush SCH (20:56)
[2016-08-08] MEDS ORDERED: TEMAZEPAM 15 MG CAPSULE PO PRN (21:00)
[2016-08-09 04:14] LABS: DIFF TOTAL CELLS COUNTED 100 CELL DIFF
[2016-08-09] MEDS: METOPROLOL TARTRATE 25 MG TABLET PO SCH ×4 (04:17→22:17)
[2016-08-09 04:27] LABS: BLOOD UREA NITROGEN 23 mg/dL (7-18)
[2016-08-09 04:32] LABS: ANISOCYTOSIS 1+; OVALOCYTES 1+; VERIFY COUNTS? YES
[2016-08-09 04:37] LABS: ASPARTATE AMINO TRANSFERASE 8 U/L (15-37)
[2016-08-09] MEDS: methylPREDNISolone SOD SUCC 40 MG/ML IVPush SCH ×4 (06:00→21:00)
[2016-08-09] MEDS: GUAIFENESIN 200 MG TABLET PO SCH ×4 (06:00→21:00)
[2016-08-09] MEDS: DILTIAZEM 300 MG CAP.ER.24H PO SCH (09:00)
[2016-08-09] MEDS: GABAPENTIN 300 MG CAPSULE PO SCH ×3 (09:00→21:00)
[2016-08-09] MEDS: AcetaZOLAMIDE INJ 500 MG IVPush SCH (09:00)
[2016-08-09] MEDS: DIGOXIN 0.25 MG TABLET PO SCH (09:00)
[2016-08-09] MEDS: APIXABAN 5 MG TABLET PO SCH ×2 (09:00→21:00)
[2016-08-09] MEDS: SENNA/DOCUSATE TABLET PO SCH (09:00)
[2016-08-09] MEDS: FLUTICASONE/VILANTEROL 200-25MCG/INH INH SCH (09:00)
[2016-08-09] MEDS: ALBUTEROL/IPRATROPIUM 2.5MG/0.5MG, 3 ML NPPB SCH ×3 (09:20→16:10)
[2016-08-10] MEDS: METOPROLOL TARTRATE 25 MG TABLET PO SCH ×4 (04:17→21:48)
[2016-08-10] MEDS: methylPREDNISolone SOD SUCC 40 MG/ML IVPush SCH ×4 (06:00→21:47)
[2016-08-10] MEDS: GUAIFENESIN 200 MG TABLET PO SCH ×4 (06:00→21:47)
[2016-08-10] MEDS: ALBUTEROL/IPRATROPIUM 2.5MG/0.5MG, 3 ML NPPB SCH ×4 (07:10→19:24)
[2016-08-10] MEDS: AcetaZOLAMIDE INJ 500 MG IVPush SCH (09:00)
[2016-08-10] MEDS: FLUTICASONE/VILANTEROL 200-25MCG/INH INH SCH (09:00)
[2016-08-10] MEDS: DIGOXIN 0.25 MG TABLET PO SCH (09:00)
[2016-08-10] MEDS: GABAPENTIN 300 MG CAPSULE PO SCH ×3 (09:00→21:47)
[2016-08-10] MEDS: DILTIAZEM 300 MG CAP.ER.24H PO SCH (09:00)
[2016-08-10] MEDS: SENNA/DOCUSATE TABLET PO SCH (09:00)
[2016-08-10] MEDS: APIXABAN 5 MG TABLET PO SCH ×2 (09:00→21:47)
[2016-08-10 12:00] VITALS: BP 126/68
[2016-08-10] MEDS: OXYcodone IR 5MG TABLET PO PRN ×2 (17:24→21:48)
[2016-08-10 19:59] VITALS: BP 149/62
[2016-08-11] MEDS: morphine SULFATE 10 MG/ML, 1ML IVPush PRN ×2 (00:25→11:37)
[2016-08-11 01:50] VITALS: BP 142/66
[2016-08-11] MEDS: METOPROLOL TARTRATE 25 MG TABLET PO SCH ×4 (04:59→23:47)
[2016-08-11] MEDS: methylPREDNISolone SOD SUCC 40 MG/ML IVPush SCH ×4 (04:59→22:20)
[2016-08-11] MEDS: GUAIFENESIN 200 MG TABLET PO SCH ×4 (04:59→22:20)
[2016-08-11] MEDS: OXYcodone IR 5MG TABLET PO PRN ×5 (05:00→23:47)
[2016-08-11 06:12] LABS: ASPARTATE AMINO TRANSFERASE 8 U/L (15-37); BLOOD UREA NITROGEN 14 mg/dL (7-18)
[2016-08-11] MEDS: ALBUTEROL/IPRATROPIUM 2.5MG/0.5MG, 3 ML NPPB SCH ×4 (06:55→20:00)
[2016-08-11 07:10] VITALS: BP 135/79
[2016-08-11] MEDS: SENNA/DOCUSATE TABLET PO SCH (09:00)
[2016-08-11] MEDS: GABAPENTIN 300 MG CAPSULE PO SCH ×3 (10:14→22:19)
[2016-08-11] MEDS: APIXABAN 5 MG TABLET PO SCH ×2 (10:14→22:20)
[2016-08-11] MEDS: DILTIAZEM 300 MG CAP.ER.24H PO SCH (10:15)
[2016-08-11] MEDS: FLUTICASONE/VILANTEROL 200-25MCG/INH INH SCH (10:15)
[2016-08-11] MEDS: DIGOXIN 0.25 MG TABLET PO SCH (10:15)
[2016-08-11] MEDS: AcetaZOLAMIDE INJ 500 MG IVPush SCH (11:24)
[2016-08-11] MEDS ORDERED: MORPHINE SULFATE 4 MG/ML, 1ML ONE (11:34)
[2016-08-11 13:40] VITALS: BP 144/85
[2016-08-11 17:27] LABS: BLOOD UREA NITROGEN 14 mg/dL (7-18)
[2016-08-11 18:21] VITALS: BP 125/57
[2016-08-12 03:23] VITALS: BP 137/73
[2016-08-12] MEDS: OXYcodone IR 5MG TABLET PO PRN ×3 (03:54→15:19)
[2016-08-12] MEDS: METOPROLOL TARTRATE 25 MG TABLET PO SCH ×2 (05:41→11:38)
[2016-08-12] MEDS: methylPREDNISolone SOD SUCC 40 MG/ML IVPush SCH ×2 (05:41→11:38)
[2016-08-12] MEDS: GUAIFENESIN 200 MG TABLET PO SCH ×3 (05:41→16:07)
[2016-08-12] MEDS: ALBUTEROL/IPRATROPIUM 2.5MG/0.5MG, 3 ML NPPB SCH ×3 (07:35→15:50)
[2016-08-12 10:16] VITALS: BP 137/74
[2016-08-12] MEDS: DIGOXIN 0.25 MG TABLET PO SCH (10:22)
[2016-08-12] MEDS: FLUTICASONE/VILANTEROL 200-25MCG/INH INH SCH (10:22)
[2016-08-12] MEDS: DILTIAZEM 300 MG CAP.ER.24H PO SCH (10:22)
[2016-08-12] MEDS: GABAPENTIN 300 MG CAPSULE PO SCH ×2 (10:22→16:07)
[2016-08-12] MEDS: SENNA/DOCUSATE TABLET PO SCH (10:22)
[2016-08-12] MEDS: APIXABAN 5 MG TABLET PO SCH (10:22)
[2016-08-12] MEDS ORDERED: CYCLOBENZAPRINE 10 MG TABLET PO PRN (13:30)
[2016-08-12 13:40] VITALS: BP 133/76
[2016-08-12] MEDS ORDERED: DILT240C80 PO (15:51)
[2016-08-12] MEDS ORDERED: APIX5TAB PO (15:51)
[2016-08-12] MEDS ORDERED: PRED20TA PO (15:51)
[2016-08-12] MEDS ORDERED: METO50TA82 PO (15:51)
[2016-08-12] MEDS ORDERED: METOPROLOL TARTRATE 50 MG TABLET PO SCH (21:00)
== END 2016-08-12 18:22 | DRG 871 ==
LOC: ED 11:35 → EDIP 11:37 → CCU 13:49 → 4WST 07-22 13:53 → CCU 08-08 17:42 → 3NW 08-10 11:30
PROVIDERS: ADMIT Internal Medicine; ATTEND Family Medicine
PROC: 02HV33Z Insertion of Infusion Device into Superior Vena Cava, Percutaneous Approach (ICD-10-PCS; principal; 2016-07-21)
PROC: B548ZZA Ultrasonography of Superior Vena Cava, Guidance (ICD-10-PCS; 2016-07-21)
DX: A41.9 Sepsis, unspecified organism (principal); J15.9 Unspecified bacterial pneumonia; E43 Unspecified severe protein-calorie malnutrition; J96.21 Acute and chronic respiratory failure with hypoxia; J15.6 Pneumonia due to other Gram-negative bacteria; R65.21 Severe sepsis with septic shock; J15.1 Pneumonia due to Pseudomonas; J15.212 Pneumonia due to Methicillin resistant Staphylococcus aureus; J44.0 Chronic obstructive pulmonary disease with (acute) lower respiratory infection; D68.69 Other thrombophilia; J44.1 Chronic obstructive pulmonary disease with (acute) exacerbation; I48.92 Unspecified atrial flutter; E87.3 Alkalosis; I10 Essential (primary) hypertension; G89.4 Chronic pain syndrome; Z86.14 Personal history of Methicillin resistant Staphylococcus aureus infection; I48.91 Unspecified atrial fibrillation; N40.0 Benign prostatic hyperplasia without lower urinary tract symptoms; F41.9 Anxiety disorder, unspecified; F10.10 Alcohol abuse, uncomplicated; Z88.6 Allergy status to analgesic agent; D50.9 Iron deficiency anemia, unspecified; E87.6 Hypokalemia; D63.8 Anemia in other chronic diseases classified elsewhere; I27.2 Other secondary pulmonary hypertension; G62.9 Polyneuropathy, unspecified; F17.200 Nicotine dependence, unspecified, uncomplicated; I34.0 Nonrheumatic mitral (valve) insufficiency; Z99.81 Dependence on supplemental oxygen; Z59.0 Homelessness; D72.810 Lymphocytopenia; T38.0X5A Adverse effect of glucocorticoids and synthetic analogues, initial encounter
CPT/HCPCS: 36415; 36556; 36600; 49083; 71010; 71275; 74177; 80048; 80053; 80162; 80202; 81003; 82728; 82803; 83540; 83550; 83605; 83735; 84145; 85025; 85610; 85651; 85730; 86140; 87040; 87070; 87077; 87081; 87186; 87205; 93005; 93306; 94640; 96361; 96365; 96375; 99291; J1650; J1756; J1956; J2185; J2543; J3010; J3370; J3480; J3490; J7060; J7620; Q9967; J1120; J1160; J1940; J2060; J2270; J2920; J2930; J7030; J7040; J7050; J7512

== ENCOUNTER 2016-08-27 09:10 | Inpatient (IN) | payer MEDICAID ==
[~2016-08-27] VITALS: Ht 172.7 cm; Wt 91.2 kg
[~2016-08-27 09:10] MED LIST: ALPR0.254 PO; APIX5TAB PO; ASPI-650 PO; BUDE10.2 INH; CLOT15CR5 TP; DIGO125T PO; DILT240C80 PO; ETOMIDATE 20 MG/10 ML ONE; FERR325T10 PO; GABA300C10 PO; IPRA3AMP INH; METO50TA82 PO; OXYC-229 PO; POLY17PO5 PO; POTA20TA89 PO; PRED20TA PO; PROPOFOL 10 MG/ML, 100ML IV ONE; SENN-66 PO; SERT50TA5 PO; SUCCINYLCHOLINE 20 MG/ML, 10ML ONE; TAMS0.4C2 PO; TIOT18CA INH
[2016-08-27] MEDS ORDERED: SUCCINYLCHOLINE 20 MG/ML, 10ML IVPush ONE (09:30)
[2016-08-27] MEDS ORDERED: ETOMIDATE 40 MG/20 ML IVPush ONE (09:30)
[2016-08-27] MEDS ORDERED: SODIUM CHLORIDE 0.9% 1,000ML IVBOLUS ONE ×2 (09:30→10:00)
[2016-08-27] MEDS ORDERED: SODIUM CHLORIDE FLUSH 10ML SYR IVF ONE (09:30)
[2016-08-27] MEDS: PROPOFOL 100 ML IV PRN ×3 (09:40→19:23)
[2016-08-27 10:18] LABS: ABG COLLECTION SITE RIGHT RADIAL; COLLATERAL CIRCULATION TESTING NORMAL; FIO2 80 %
[2016-08-27 10:29] LABS: ASPARTATE AMINO TRANSFERASE 321 U/L (15-37); BLOOD UREA NITROGEN 13 mg/dL (7-18)
[2016-08-27 10:34] LABS: IS PT STATUS REG ER OR PRE ER? YES
[2016-08-27 10:43] LABS: ANISOCYTOSIS 1+; HYPOCHROMIA 1+
[2016-08-27 10:44] LABS: OVALOCYTES 1+; POLYCHROMASIA 1+
[2016-08-27] MEDS ORDERED: MEROPENEM 1 GM in SODIUM CHLORIDE 0.9% 100 ML IV ONE (11:00)
[2016-08-27] MEDS ORDERED: MEROPENEM 1 GM in SODIUM CHLORIDE 0.9% 50 ML IV SCH (11:00)
[2016-08-27] MEDS ORDERED: ONDANSETRON 2MG/ML, 2ML IVPush PRN (11:00)
[2016-08-27] MEDS ORDERED: ACETAMINOPHEN 325 MG TABLET PO PRN (11:00)
[2016-08-27] MEDS ORDERED: POLYETHYLENE GLYCOL 17 GM PACKET PO PRN (11:00)
[2016-08-27] MEDS ORDERED: LIDOCAINE-MPF 1%, 2ML ENDO PRN (11:30)
[2016-08-27] MEDS: ALBUTEROL/IPRATROPIUM 2.5MG/0.5MG, 3 ML INLINE SCH ×4 (11:30→21:52)
[2016-08-27] MEDS ORDERED: PHARMACY MAY ADJ FOR RENAL FX MC SCH (11:30)
[2016-08-27] MEDS ORDERED: methylPREDNISolone SOD SUCC 125 MG/2 ML ONE (11:35)
[2016-08-27] MEDS ORDERED: NS + 20MEQ KCL 1,000 ML IV ONE (11:36)
[2016-08-27] MEDS: NS + 20MEQ KCL 1,000 ML IV SCH ×2 (11:41→23:09)
[2016-08-27] MEDS: methylPREDNISolone SOD SUCC 125 MG/2 ML IVPush SCH ×2 (11:45→20:16)
[2016-08-27] MEDS: DOXYCYCLINE 100 MG in DEXTROSE 5% 250 ML IV SCH (11:50)
[2016-08-27] MEDS: NOREPINEPHRINE 4 MG in SODIUM CHLORIDE 0.9% 246 ML IV PRN ×3 (12:08→12:46)
[2016-08-27] MEDS ORDERED: PLEASE ENTER ALLERGIES MC SCH ×2 (12:30)
[2016-08-27] MEDS ORDERED: PROPOFOL 100 ML IV ONE (12:57)
[2016-08-27 15:15] VITALS: BP 112/75
[2016-08-27] MEDS ORDERED: VANCOMYCIN PER PHARMACY MC PRN (16:30)
[2016-08-27] MEDS ORDERED: [UNRECOGNIZED DRUG - REMARK] MC SCH (16:30)
[2016-08-27 17:16] LABS: IS PT STATUS REG ER OR PRE ER? NO
[2016-08-27] MEDS ORDERED: SODIUM CHLORIDE 0.9%, 500ML IVBOLUS ONE (17:30)
[2016-08-27] MEDS ORDERED: PHARMACOKINETIC MONITORING MC PRN (18:30)
[2016-08-27] MEDS: MEROPENEM 1 GM in SODIUM CHLORIDE 0.9% 100 ML IV SCH (18:35)
[2016-08-27] MEDS: VANCOMYCIN 1,800 MG in SODIUM CHLORIDE 0.9% 250 ML IV SCH (19:24)
[2016-08-27] MEDS: FAMOTIDINE 20 MG/2 ML IVPush SCH (20:17)
[2016-08-27] MEDS: APIXABAN 5 MG TABLET PO SCH (20:18)
[2016-08-28] MEDS: DOXYCYCLINE 100 MG in DEXTROSE 5% 250 ML IV SCH ×3 (00:35→23:21)
[2016-08-28] MEDS: NOREPINEPHRINE 4 MG in SODIUM CHLORIDE 0.9% 246 ML IV PRN (00:36)
[2016-08-28] MEDS: morphine SULFATE 10 MG/ML, 1ML IVPush PRN ×3 (01:06→23:22)
[2016-08-28] MEDS: PROPOFOL 100 ML IV PRN ×7 (01:21→23:21)
[2016-08-28] MEDS: MEROPENEM 1 GM in SODIUM CHLORIDE 0.9% 100 ML IV SCH ×3 (01:51→17:36)
[2016-08-28] MEDS: ALBUTEROL/IPRATROPIUM 2.5MG/0.5MG, 3 ML INLINE SCH ×6 (02:35→22:20)
[2016-08-28] MEDS: OXYcodone IR 5MG TABLET PO PRN ×3 (02:50→15:56)
[2016-08-28] MEDS: methylPREDNISolone SOD SUCC 125 MG/2 ML IVPush SCH ×3 (03:41→19:40)
[2016-08-28 04:36] LABS: ABG COLLECTION SITE LEFT RADIAL; COLLATERAL CIRCULATION TESTING NORMAL
[2016-08-28 05:00] VITALS: BP 97/68
[2016-08-28 05:18] LABS: ASPARTATE AMINO TRANSFERASE 223 U/L (15-37); BLOOD UREA NITROGEN 8 mg/dL (7-18)
[2016-08-28 05:26] LABS: IS PT STATUS REG ER OR PRE ER? NO
[2016-08-28] MEDS: VANCOMYCIN 1,800 MG in SODIUM CHLORIDE 0.9% 250 ML IV SCH ×2 (05:50→18:28)
[2016-08-28 06:23] LABS: HYPOCHROMIA 1+
[2016-08-28 06:24] LABS: ANISOCYTOSIS 1+; POLYCHROMASIA 1+
[2016-08-28 06:25] LABS: OVALOCYTES 1+
[2016-08-28] MEDS ORDERED: POTASSIUM CHLORIDE 10% 40 MEQ/30 ML UDC PO ONE (08:00)
[2016-08-28] MEDS: FAMOTIDINE 20 MG/2 ML IVPush SCH ×2 (09:10→20:14)
[2016-08-28] MEDS: SENNA/DOCUSATE TABLET PO SCH (09:10)
[2016-08-28] MEDS: APIXABAN 5 MG TABLET PO SCH ×2 (09:10→20:14)
[2016-08-28] MEDS: NS + 20MEQ KCL 1,000 ML IV SCH ×2 (10:44→22:27)
[2016-08-28] MEDS: LORazepam 2 MG/ML, 1ML IVPush PRN (12:30)
[2016-08-29] MEDS: MEROPENEM 1 GM in SODIUM CHLORIDE 0.9% 100 ML IV SCH ×3 (01:51→17:34)
[2016-08-29] MEDS: ALBUTEROL/IPRATROPIUM 2.5MG/0.5MG, 3 ML INLINE SCH ×6 (02:11→23:27)
[2016-08-29] MEDS: PROPOFOL 100 ML IV PRN ×7 (03:37→22:44)
[2016-08-29] MEDS: LORazepam 2 MG/ML, 1ML IVPush PRN (03:57)
[2016-08-29] MEDS: methylPREDNISolone SOD SUCC 125 MG/2 ML IVPush SCH ×3 (04:08→20:24)
[2016-08-29 05:14] LABS: ABG COLLECTION SITE RIGHT RADIAL; COLLATERAL CIRCULATION TESTING NORMAL
[2016-08-29] MEDS: VANCOMYCIN 1,800 MG in SODIUM CHLORIDE 0.9% 250 ML IV SCH ×2 (05:27→18:06)
[2016-08-29 05:30] VITALS: BP 109/72
[2016-08-29 06:17] LABS: DIFF TOTAL CELLS COUNTED 100 CELL DIFF
[2016-08-29 06:20] LABS: ANISOCYTOSIS 1+; OVALOCYTES 1+; VERIFY COUNTS? YES
[2016-08-29 06:21] LABS: HYPOCHROMIA 1+; POLYCHROMASIA 1+
[2016-08-29 06:22] LABS: MICROCYTOSIS 1+
[2016-08-29 07:46] LABS: BLOOD UREA NITROGEN 11 mg/dL (7-18)
[2016-08-29] MEDS: morphine SULFATE 10 MG/ML, 1ML IVPush PRN ×2 (09:25→19:11)
[2016-08-29] MEDS: FAMOTIDINE 20 MG/2 ML IVPush SCH ×2 (09:25→21:00)
[2016-08-29] MEDS: NS + 20MEQ KCL 1,000 ML IV SCH ×2 (09:25→17:00)
[2016-08-29] MEDS: APIXABAN 5 MG TABLET PO SCH ×2 (09:25→21:00)
[2016-08-29] MEDS: SENNA/DOCUSATE TABLET PO SCH (09:25)
[2016-08-29 09:55] LABS: ABG COLLECTION SITE RIGHT RADIAL; COLLATERAL CIRCULATION TESTING NORMAL
[2016-08-29] MEDS: DOXYCYCLINE 100 MG in DEXTROSE 5% 250 ML IV SCH ×2 (12:44→23:44)
[2016-08-29] MEDS ORDERED: FUROSEMIDE 40 MG/4 ML IV ONE (14:30)
[2016-08-29] MEDS: QUETIAPINE 25MG TABLET PO SCH (21:00)
[2016-08-30] MEDS: MEROPENEM 1 GM in SODIUM CHLORIDE 0.9% 100 ML IV SCH ×3 (01:30→18:27)
[2016-08-30] MEDS: PROPOFOL 100 ML IV PRN ×5 (01:39→21:09)
[2016-08-30] MEDS: ALBUTEROL/IPRATROPIUM 2.5MG/0.5MG, 3 ML INLINE SCH ×6 (03:30→23:20)
[2016-08-30] MEDS: methylPREDNISolone SOD SUCC 125 MG/2 ML IVPush SCH ×4 (03:32→21:30)
[2016-08-30 04:00] VITALS: BP 143/81
[2016-08-30 04:43] LABS: ABG COLLECTION SITE RIGHT RADIAL; COLLATERAL CIRCULATION TESTING NORMAL
[2016-08-30 05:43] LABS: DIFF TOTAL CELLS COUNTED 100 CELL DIFF
[2016-08-30 05:46] LABS: VERIFY COUNTS? YES
[2016-08-30 05:47] LABS: ANISOCYTOSIS 1+; OVALOCYTES 1+; POLYCHROMASIA 1+
[2016-08-30 05:48] LABS: MICROCYTOSIS 1+
[2016-08-30] MEDS: NS + 20MEQ KCL 1,000 ML IV SCH ×2 (06:05→15:32)
[2016-08-30] MEDS: VANCOMYCIN 1,800 MG in SODIUM CHLORIDE 0.9% 250 ML IV SCH (06:05)
[2016-08-30 06:29] LABS: BLOOD UREA NITROGEN 14 mg/dL (7-18)
[2016-08-30] MEDS: SENNA/DOCUSATE TABLET PO SCH (09:00)
[2016-08-30] MEDS: QUETIAPINE 25MG TABLET PO SCH ×2 (10:21→21:00)
[2016-08-30] MEDS: APIXABAN 5 MG TABLET PO SCH ×2 (10:22→21:00)
[2016-08-30] MEDS: FAMOTIDINE 20 MG/2 ML IVPush SCH ×2 (10:23→21:00)
[2016-08-30] MEDS: morphine SULFATE 10 MG/ML, 1ML IVPush PRN ×3 (12:53→20:19)
[2016-08-30] MEDS: DOXYCYCLINE 100 MG in DEXTROSE 5% 250 ML IV SCH ×2 (12:54→23:56)
[2016-08-30] MEDS: OXYcodone IR 5MG TABLET PO PRN (15:23)
[2016-08-30] MEDS ORDERED: ALBUMIN HUMAN 25% 50 ML IV ONE (22:00)
[2016-08-30] MEDS ORDERED: FUROSEMIDE 20 MG/2 ML IV ONE (23:00)
[2016-08-30] MEDS: VANCOMYCIN 1,600 MG in SODIUM CHLORIDE 0.9% 250 ML IV SCH (23:57)
[2016-08-31] MEDS: PROPOFOL 100 ML IV PRN ×6 (01:03→22:59)
[2016-08-31] MEDS: MEROPENEM 1 GM in SODIUM CHLORIDE 0.9% 100 ML IV SCH ×3 (02:30→18:20)
[2016-08-31] MEDS: NS + 20MEQ KCL 1,000 ML IV SCH ×4 (02:30→22:59)
[2016-08-31] MEDS: ALBUTEROL/IPRATROPIUM 2.5MG/0.5MG, 3 ML INLINE SCH ×6 (03:48→22:20)
[2016-08-31 04:00] VITALS: BP 146/100
[2016-08-31 04:24] LABS: ABG COLLECTION SITE LEFT RADIAL; COLLATERAL CIRCULATION TESTING NORMAL
[2016-08-31] MEDS: methylPREDNISolone SOD SUCC 125 MG/2 ML IVPush SCH ×4 (06:03→22:58)
[2016-08-31 07:17] LABS: ANISOCYTOSIS 1+; MICROCYTOSIS 1+; OVALOCYTES 1+; POLYCHROMASIA 1+
[2016-08-31 07:19] LABS: DIFF TOTAL CELLS COUNTED 200 CELL DIFF; VERIFY COUNTS? YES
[2016-08-31 07:29] LABS: BLOOD UREA NITROGEN 17 mg/dL (7-18)
[2016-08-31] MEDS ORDERED: DIGOXIN 0.25 MG/ML, 2ML ONE (08:11)
[2016-08-31] MEDS ORDERED: ACETAMINOPHEN 650 MG/20.3 ML UDC ONE ×2 (08:12→17:30)
[2016-08-31] MEDS: LORazepam 2 MG/ML, 1ML IVPush PRN ×4 (08:15→20:15)
[2016-08-31] MEDS ORDERED: DIGOXIN 0.25 MG/ML, 2ML IVPush ONE (08:30)
[2016-08-31 09:14] LABS: ABG COLLECTION SITE RIGHT RADIAL; COLLATERAL CIRCULATION TESTING NORMAL
[2016-08-31] MEDS: FAMOTIDINE 20 MG/2 ML IVPush SCH ×2 (10:53→20:54)
[2016-08-31] MEDS: APIXABAN 5 MG TABLET PO SCH ×2 (10:53→20:54)
[2016-08-31] MEDS: QUETIAPINE 25MG TABLET PO SCH ×2 (10:55→20:54)
[2016-08-31] MEDS: SENNA/DOCUSATE TABLET PO SCH (10:55)
[2016-08-31] MEDS: DOXYCYCLINE 100 MG in DEXTROSE 5% 250 ML IV SCH ×2 (12:32→23:25)
[2016-08-31] MEDS: DIGOXIN 0.25 MG/ML, 2ML IVPush SCH ×2 (12:33→16:07)
[2016-08-31] MEDS: morphine SULFATE 10 MG/ML, 1ML IVPush PRN (16:08)
[2016-08-31] MEDS: OXYcodone IR 5MG TABLET PO PRN (17:34)
[2016-08-31] MEDS: VANCOMYCIN 1,600 MG in SODIUM CHLORIDE 0.9% 250 ML IV SCH (18:20)
[2016-08-31] MEDS: ACETAMINOPHEN 650 MG/20.3 ML UDC PO PRN ×2 (19:24→23:24)
[2016-08-31] MEDS ORDERED: ACETAMINOPHEN 650 MG/20.3 ML UDC PO PRN (19:30)
[2016-09-01] MEDS: ALBUTEROL/IPRATROPIUM 2.5MG/0.5MG, 3 ML INLINE SCH ×6 (02:10→22:30)
[2016-09-01] MEDS: PROPOFOL 100 ML IV PRN ×5 (02:36→20:50)
[2016-09-01] MEDS: MEROPENEM 1 GM in SODIUM CHLORIDE 0.9% 100 ML IV SCH (02:36)
[2016-09-01 04:00] VITALS: BP 125/73
[2016-09-01 04:34] LABS: ABG COLLECTION SITE RIGHT RADIAL; COLLATERAL CIRCULATION TESTING NORMAL
[2016-09-01] MEDS: methylPREDNISolone SOD SUCC 125 MG/2 ML IVPush SCH ×4 (04:34→22:48)
[2016-09-01 05:55] LABS: ASPARTATE AMINO TRANSFERASE 12 U/L (15-37); BLOOD UREA NITROGEN 13 mg/dL (7-18)
[2016-09-01 06:29] LABS: DIFF TOTAL CELLS COUNTED 100 CELL DIFF
[2016-09-01 06:35] LABS: ANISOCYTOSIS 1+; POLYCHROMASIA 1+; VERIFY COUNTS? YES
[2016-09-01 06:36] LABS: MICROCYTOSIS 1+; OVALOCYTES 1+
[2016-09-01] MEDS: DIGOXIN 0.25 MG/ML, 2ML IVPush SCH (11:18)
[2016-09-01] MEDS: FAMOTIDINE 20 MG/2 ML IVPush SCH ×2 (11:18→20:51)
[2016-09-01] MEDS: SULFAMETH./TRIMETHOPRIM DS 800MG/160MG TABLET PO SCH ×2 (11:18→20:51)
[2016-09-01] MEDS: POTASSIUM CHLORIDE 20 MEQ TAB.ER.PRT PO SCH ×2 (11:19→17:00)
[2016-09-01] MEDS: SENNA/DOCUSATE TABLET PO SCH (11:20)
[2016-09-01] MEDS: APIXABAN 5 MG TABLET PO SCH ×2 (11:20→20:51)
[2016-09-01] MEDS: QUETIAPINE 25MG TABLET PO SCH ×2 (11:20→20:51)
[2016-09-01] MEDS: VANCOMYCIN 1,600 MG in SODIUM CHLORIDE 0.9% 250 ML IV SCH (11:52)
[2016-09-01] MEDS ORDERED: SODIUM CHLORIDE 0.9% 1,000 ML IV SCH (17:30)
[2016-09-01] MEDS ORDERED: FUROSEMIDE 20 MG/2 ML IV ONE (19:30)
[2016-09-01] MEDS: morphine SULFATE 10 MG/ML, 1ML IVPush PRN (20:51)
[2016-09-02] MEDS: ALBUTEROL/IPRATROPIUM 2.5MG/0.5MG, 3 ML INLINE SCH ×6 (02:10→22:52)
[2016-09-02] MEDS: PROPOFOL 100 ML IV PRN ×3 (02:56→07:22)
[2016-09-02] MEDS: LORazepam 2 MG/ML, 1ML IVPush PRN ×2 (02:56→10:03)
[2016-09-02] MEDS: methylPREDNISolone SOD SUCC 125 MG/2 ML IVPush SCH ×4 (04:35→22:45)
[2016-09-02 04:47] LABS: ABG COLLECTION SITE RIGHT RADIAL; COLLATERAL CIRCULATION TESTING NORMAL
[2016-09-02 05:21] VITALS: BP 130/77
[2016-09-02 05:32] LABS: BLOOD UREA NITROGEN 21 mg/dL (7-18)
[2016-09-02 05:43] LABS: DIFF TOTAL CELLS COUNTED 100 CELL DIFF
[2016-09-02 05:47] LABS: VERIFY COUNTS? YES
[2016-09-02 05:48] LABS: ANISOCYTOSIS 1+; OVALOCYTES 1+; POLYCHROMASIA 1+
[2016-09-02] MEDS: VANCOMYCIN 1,600 MG in SODIUM CHLORIDE 0.9% 250 ML IV SCH (06:29)
[2016-09-02] MEDS: FAMOTIDINE 20 MG/2 ML IVPush SCH ×2 (09:30→20:44)
[2016-09-02] MEDS: DIGOXIN 0.25 MG/ML, 2ML IVPush SCH (09:30)
[2016-09-02] MEDS ORDERED: SULFAMETH/TRIMETHOPRIM 40-8MG/ML SUSP. PO SCH (09:30)
[2016-09-02] MEDS: POTASSIUM CHLORIDE 20 MEQ TAB.ER.PRT PO SCH ×2 (09:31→16:35)
[2016-09-02] MEDS: SENNA/DOCUSATE TABLET PO SCH (09:31)
[2016-09-02] MEDS: QUETIAPINE 25MG TABLET PO SCH ×2 (09:31→22:44)
[2016-09-02] MEDS: ALBUMIN HUMAN 25% 100 ML IV SCH ×2 (09:31→20:44)
[2016-09-02] MEDS: APIXABAN 5 MG TABLET PO SCH ×2 (09:32→22:44)
[2016-09-02] MEDS: morphine SULFATE 10 MG/ML, 1ML IVPush PRN (09:38)
[2016-09-02] MEDS: FUROSEMIDE 20 MG/2 ML IV SCH ×2 (10:03→22:45)
[2016-09-02] MEDS: MIDAZOLAM 1 MG/ML, 2ML IVPush PRN ×2 (11:02→20:44)
[2016-09-02] MEDS: INSULIN ASPART 100 UNITS/ML, 3ML PEN MEDIUM DOSE SS SQ-INSULIN SCH ×3 (11:08→20:52)
[2016-09-02] MEDS: OXYcodone IR 5MG TABLET PO PRN ×3 (12:01→23:11)
[2016-09-02] MEDS: ALPRazolam 1MG TABLET PO SCH ×2 (16:35→22:44)
[2016-09-02] MEDS: VANCOMYCIN 1,800 MG in SODIUM CHLORIDE 0.9% 250 ML IV SCH (17:23)
[2016-09-02] MEDS: SULFAMETH/TRIMETHOPRIM 40-8MG/ML SUSP. PO SCH (17:25)
[2016-09-03] MEDS: SULFAMETH/TRIMETHOPRIM 40-8MG/ML SUSP. PO SCH ×3 (00:59→18:05)
[2016-09-03] MEDS: ALBUTEROL/IPRATROPIUM 2.5MG/0.5MG, 3 ML INLINE SCH ×4 (02:41→14:35)
[2016-09-03] MEDS: OXYcodone IR 5MG TABLET PO PRN ×2 (03:10→09:30)
[2016-09-03] MEDS: morphine SULFATE 10 MG/ML, 1ML IVPush PRN (03:10)
[2016-09-03] MEDS: MIDAZOLAM 1 MG/ML, 2ML IVPush PRN (03:10)
[2016-09-03 04:00] VITALS: BP 159/90
[2016-09-03 04:51] LABS: ABG COLLECTION SITE LEFT RADIAL; COLLATERAL CIRCULATION TESTING NORMAL
[2016-09-03 05:04] LABS: BLOOD UREA NITROGEN 38 mg/dL (7-18)
[2016-09-03 05:07] LABS: ASPARTATE AMINO TRANSFERASE 13 U/L (15-37)
[2016-09-03 05:53] LABS: DIFF TOTAL CELLS COUNTED 100 CELL DIFF
[2016-09-03 05:54] LABS: VERIFY COUNTS? YES
[2016-09-03 05:55] LABS: ANISOCYTOSIS 1+; OVALOCYTES 1+
[2016-09-03 05:56] LABS: POLYCHROMASIA 1+
[2016-09-03] MEDS: methylPREDNISolone SOD SUCC 125 MG/2 ML IVPush SCH ×3 (06:22→17:49)
[2016-09-03] MEDS: INSULIN ASPART 100 UNITS/ML, 3ML PEN MEDIUM DOSE SS SQ-INSULIN SCH ×3 (06:22→17:51)
[2016-09-03] MEDS ORDERED: AcetaZOLAMIDE INJ 500 MG IVPush ONE (09:00)
[2016-09-03] MEDS: APIXABAN 5 MG TABLET PO SCH (09:30)
[2016-09-03] MEDS: SENNA/DOCUSATE TABLET PO SCH (09:30)
[2016-09-03] MEDS: ALPRazolam 1MG TABLET PO SCH ×3 (09:30→17:50)
[2016-09-03] MEDS: ALBUMIN HUMAN 25% 100 ML IV SCH (09:30)
[2016-09-03] MEDS: QUETIAPINE 25MG TABLET PO SCH ×3 (09:30→17:49)
[2016-09-03] MEDS: FAMOTIDINE 20 MG/2 ML IVPush SCH (09:30)
[2016-09-03] MEDS: POTASSIUM CHLORIDE 20 MEQ TAB.ER.PRT PO SCH ×2 (09:30→17:49)
[2016-09-03] MEDS: DIGOXIN 0.25 MG/ML, 2ML IVPush SCH (09:30)
[2016-09-03] MEDS: FUROSEMIDE 20 MG/2 ML IV SCH (10:44)
[2016-09-03] MEDS: VANCOMYCIN 1,800 MG in SODIUM CHLORIDE 0.9% 250 ML IV SCH (11:52)
[2016-09-03] MEDS ORDERED: morphine SULFATE 10 MG/ML, 1ML IV ONE (19:00)
[2016-09-03] MEDS ORDERED: morphine SULFATE 10 MG/ML, 1ML IV PRN (19:00)
[2016-09-03] MEDS ORDERED: LORazepam 2 MG/ML, 1ML IV PRN (19:00)
[2016-09-03] MEDS ORDERED: FENTANYL PF 100 MCG/2ML IV PRN (19:00)
[2016-09-03] MEDS ORDERED: LORazepam 2 MG/ML, 1ML IV ONE (19:00)
[2016-09-03] MEDS ORDERED: ATROPINE OPHTH SOLN 1%, 2ML PO PRN (19:00)
== END 2016-09-04 01:21 | disposition expired | DRG 870 ==
LOC: ED 10:39 → EDIP 10:40 → ED 10:53 → CCU 14:12
PROVIDERS: ADMIT Internal Medicine; ATTEND Internal Medicine
PROC: 5A1955Z Respiratory Ventilation, Greater than 96 Consecutive Hours (ICD-10-PCS; principal; 2016-08-27)
PROC: 02HV33Z Insertion of Infusion Device into Superior Vena Cava, Percutaneous Approach (ICD-10-PCS; 2016-08-27)
PROC: 0BH17EZ Insertion of Endotracheal Airway into Trachea, Via Natural or Artificial Opening (ICD-10-PCS; 2016-08-27)
DX: A41.9 Sepsis, unspecified organism (principal); E43 Unspecified severe protein-calorie malnutrition; J96.21 Acute and chronic respiratory failure with hypoxia; R65.21 Severe sepsis with septic shock; J15.6 Pneumonia due to other Gram-negative bacteria; J44.1 Chronic obstructive pulmonary disease with (acute) exacerbation; J44.0 Chronic obstructive pulmonary disease with (acute) lower respiratory infection; E87.2 Acidosis; Z99.11 Dependence on respirator [ventilator] status; I48.2 Chronic atrial fibrillation; Z51.5 Encounter for palliative care; E87.6 Hypokalemia; I10 Essential (primary) hypertension; F41.9 Anxiety disorder, unspecified; G89.4 Chronic pain syndrome; N40.0 Benign prostatic hyperplasia without lower urinary tract symptoms; R13.10 Dysphagia, unspecified; Z16.24 Resistance to multiple antibiotics; M54.9 Dorsalgia, unspecified; F10.10 Alcohol abuse, uncomplicated; Z79.01 Long term (current) use of anticoagulants; Z79.899 Other long term (current) drug therapy; Z68.30 Body mass index [BMI] 30.0-30.9, adult; Z86.14 Personal history of Methicillin resistant Staphylococcus aureus infection
CPT/HCPCS: 31500; 36415; 36556; 36600; 71010; 80048; 80053; 80162; 80202; 82040; 82803; 82962; 83605; 83735; 84478; 84484; 85025; 85610; 85730; 87040; 87070; 87077; 87081; 87150; 87186; 87205; 93005; 94002; 94003; 94640; 96361; 96374; J1815; J1940; J2185; J2250; J2704; J3010; J3370; J3480; J3490; J7060; J7620; P9047; J0330; J1120; J1160; J2060; J2270; J2930; J7030; J7040; J7050; S0028